=== PATIENT | female | born 1995 | race Caucasian/White ===

== ENCOUNTER 2018-12-03 03:50 | Emergency (ER) | payer SELFPAY ==
[~2018-12-03] VITALS: Ht 165.1 cm; Wt 59.0 kg
[2018-12-03 06:52] LABS: BASOPHILS % 0.5 % (0.0-2.0); HEMATOCRIT. 38.6 % (36.0-48.0); HEMOGLOBIN. 13.4 g/dL (12.0-16.0); LYMPHOCYTES % 13.7 % (20.0-50.0); MEAN CORPUSCULAR HEMOGLOBIN 30.5 pg (28.0-32.0); MEAN CORPUSCULAR VOLUME 87.8 fL (81.0-99.0); MEAN PLATELET VOLUME 8.6 fl (7.4-10.4); MONOCYTES % 2.4 % (2.0-8.0); NEUTROPHILS % 83.4 % (40.0-76.0); PLATELET 246 x1000/uL (130-400); RED CELL DISTRIBUTION WIDTH 12.8 % (11.6-14.6)
[2018-12-03 06:58] LABS: CHLORIDE 113 mEq/L (98-107)
[2018-12-03 07:02] LABS: ETHANOL BLOOD 288 mg/dL
[2018-12-03 07:07] LABS: HCG SCREEN NEGATIVE
[2018-12-03 10:00] VITALS: BP 120/40
== END 2018-12-03 11:45 | disposition left against medical advice (07) ==
LOC: ER 03:50 → EDBD 03:50 → ER 11:45
DX: F10.129 Alcohol abuse with intoxication, unspecified (principal); F12.10 Cannabis abuse, uncomplicated; Y90.9 Presence of alcohol in blood, level not specified
CPT/HCPCS: 36415; 80320; 84703; 99283; G0480